=== PATIENT | male | born 1945 ===

== ENCOUNTER 2019-01-03 10:02 | Emergency (ER) | payer OTHER ==
[2019-01-03 10:08] VITALS: O2SAT 98
--- NOTE | 2019-01-03 11:05 | C.PDOC ---
History Of Present Illness 73 y/o male with no known PMHx presents today accompanied by for complaints of left great toe pain for 2 weeks. Pain starts at the toe and radiates up the left thigh. He denies any known trauma or fall. Patient is able to ambulate with steady gait. Otherwise he denies any fevers, chills, or sensory changes. Time Seen by Provider: 01/03/19 10:52 Chief Complaint (Nursing): Lower Extremity Problem/Injury History Per: Patient History/Exam Limitations: no limitations Onset/Duration Of Symptoms: Days Current Symptoms Are (Timing): Still Present Past Medical History Reviewed: Historical Data, Nursing Documentation, Vital Signs Vital Signs: Last Vital Signs Temp 97.6 F 01/03/19 10:06 Pulse 63 01/03/19 10:06 Resp 20 01/03/19 10:06 BP 162/86 H 01/03/19 10:06 Pulse Ox 98 01/03/19 10:06 - Medical History PMH: No Chronic Diseases Family History: States: No Known Family Hx - Social History Hx Alcohol Use: No Hx Substance Use: No - Immunization History Hx Tetanus Toxoid Vaccination: No Hx Influenza Vaccination: No Hx Pneumococcal Vaccination: No Review Of Systems Except As Marked, All Systems Reviewed And Found Negative. Constitutional: Negative for: Fever, Chills Cardiovascular: Negative for: Chest Pain Respiratory: Negative for: Shortness of Breath Gastrointestinal: Negative for: Vomiting, Abdominal Pain Musculoskeletal: Positive for: Leg Pain Skin: Negative for: Rash, Lesions Neurological: Negative for: Weakness, Numbness, Incoordination Physical Exam - Physical Exam Appears: Non-toxic, No Acute Distress Skin: Warm, Dry, No Rash Head: Atraumatic, Normacephalic Eye(s): bilateral: Normal Inspection Neck: Normal ROM Chest: Symmetrical Cardiovascular: Rhythm Regular, No Murmur Respiratory: Normal Breath Sounds, No Accessory Muscle Use Extremity: Normal ROM, No Tenderness (to the left 1st digit or foot), Capillary Refill (less than 2 sec), No Deformity, No Swelling, Other (no open lesion or wounds to left foot) Pulses: Left Dorsalis Pedis: Normal, Right Dorsalis Pedis: Normal Neurological/Psych: Oriented x3 Gait: Steady ED Course And Treatment O2 Sat by Pulse Oximetry: 98 (on RA) Pulse Ox Interpretation: Normal Medical Decision Making Medical Decision Making: Impression: Musculoskeletal left foot pain Plan: - 600 mg PO Motrin Disposition - Disposition Referrals: [facility] [Outside] [facility] at [facility] [Outside] [facility] [place] [Outside] Disposition: HOME/ ROUTINE Disposition Time: 11:41 Condition: GOOD Prescriptions: Ibuprofen [Motrin] 600 mg PO Q6 #20 tab Instructions: Foot Sprain (DC) Forms: [employer] (Chinese) - Clinical Impression Clinical Impression: Foot pain - Scribe Statement The provider has reviewed the documentation as recorded by the Elizabeth Bryan Provider Attestation: All medical record entries made by the Elizabeth were at my direction and personally dictated by me. I have reviewed the chart and agree that the record accurately reflects my personal performance of the history, physical exam, medical decision making, and the department course for this patient. I have also personally directed, reviewed, and agree with the discharge instructions and disposition.
[2019-01-03 11:21] VITALS: BP 123/81; PULSE 65; RESP 18; TEMP 98.3
== END 2019-01-03 11:46 | disposition home or self-care (01) ==
LOC: C.ER 10:02
DX: M79.672 Pain in left foot (principal)